=== PATIENT | female | born 1995 | race Caucasian/White ===

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

== ENCOUNTER 2017-04-13 21:24 | Emergency (ER) | payer OTHER ==
[~2017-04-13] VITALS: Ht 162.6 cm; Wt 81.8 kg
[~2017-04-13 21:24] MED LIST changes: +DESYREL 100MG100 MG PO; +EXCEDRIN1 TAB PO; +LEXAPRO 10MG10 MG PO; +MINIPRESS2 MG PO; +PEPCID 20MG TAB20 MG PO; +SAPHRIS10 MG SL; +VYVANSE70 MG PO; +WELLBUTRIN XL150 MG PO; +ZOFRAN ODT4 MG PO
[2017-04-13 21:27] VITALS: BP 139/79; TEMP 98.1
[2017-04-13] MEDS ORDERED: CEPHALEXIN500 M1 PO (23:21)
[2017-04-13 23:47] VITALS: PULSE 94
== END 2017-04-13 23:47 | disposition home or self-care (01) ==
LOC: COL.ER 21:24
DX: S71.111A Laceration without foreign body, right thigh, initial encounter (principal); F31.9 Bipolar disorder, unspecified; F41.9 Anxiety disorder, unspecified; Z23 Encounter for immunization; W26.0XXA Contact with knife, initial encounter; Y92.410 Unspecified street and highway as the place of occurrence of the external cause

== ENCOUNTER 2017-07-18 22:03 | Emergency (ER) | payer SELFPAY ==
[~2017-07-18] VITALS: Ht 160 cm; Wt 81.8 kg
[~2017-07-18 22:03] MED LIST changes: +CEPHALEXIN500 M1 PO
[2017-07-18 22:06] VITALS: BP 125/81; TEMP 97.3
[2017-07-18 23:37] VITALS: PULSE 90
== END 2017-07-18 23:38 | disposition home or self-care (01) ==
LOC: COL.ER 22:03
DX: S63.501A Unspecified sprain of right wrist, initial encounter (principal); F41.9 Anxiety disorder, unspecified; F43.10 Post-traumatic stress disorder, unspecified; F31.9 Bipolar disorder, unspecified; W01.0XXA Fall on same level from slipping, tripping and stumbling without subsequent striking against object, initial encounter

== ENCOUNTER 2018-01-22 17:54 | Emergency (ER) | payer OTHER ==
[~2018-01-22] VITALS: Ht 162.6 cm; Wt 92.7 kg
[2018-01-22 18:01] VITALS: TEMP 97
[2018-01-22 19:12] LABS: COLLECTION METHOD CLEAN CATCH
[2018-01-22 19:33] LABS: MUCOUS Present /lpf; PH 5 (5-8); URINE APPEARANCE Hazy; URINE BACTERIA Rare /hpf; URINE BILIRUBIN Negative (NEGATIVE); URINE BLOOD Negative (NEGATIVE); URINE CALCIUM OXALATE CRYSTAL Present /hpf; URINE COLOR Amber; URINE GLUCOSE Negative (NEGATIVE); URINE KETONE Negative (NEGATIVE); URINE LEUKOCYTE ESTERASE Negative (NEGATIVE); URINE NITRATE Negative (NEGATIVE); URINE PROTEIN(semi-quant) 1+ (NEGATIVE); URINE UROBILINOGEN Negative (NEGATIVE)
[2018-01-22 19:35] LABS: BASO % 0.3 % (0.0-2.0); EOS # 0.1 (0.0-0.7); EOS % 0.6 % (0-4.0); GRAN # 7.9 (1.4-6.5); GRAN % 71.6 % (42.2-75.2); HEMATOCRIT 41.7 % (37.0-47.0); HEMOGLOBIN 14.5 g/dl (12.5-16.0); LYMPH # 2.4 (1.2-3.4); LYMPH % 22.2 % (20.0-51.0); MEAN CELL VOLUME 86 fl (80.0-100.0); MEAN CORPUSCULAR HEMOGLOBIN 30 pg (27.0-31.0); MEAN CORPUSCULAR HGB CONC 35 g/dl (33.0-37.0); MEAN PLATELET VOLUME 9.1 fl (7.4-10.4); MONO # 0.6 (0.1-0.6); PLATELET COUNT 259 K/mm3 (130-400); RED BLOOD COUNT 4.87 M/mm3 (4.10-5.30); REDCELL DISTRIBUTION WIDTH-CV 13.7 % (11.5-14.5)
[2018-01-22 19:46] LABS: ALBUMIN 4.5 gm/dL (3.5-5.0); BILIRUBIN,TOTAL 0.4 mg/dL (0.0-1.0); CALCIUM 9.2 mg/dL (8.4-10.2); CREATININE, serum 1.41 mg/dL (0.52-1.25); POTASSIUM 3.5 mmol/L (3.4-5.0)
[2018-01-22 21:05] VITALS: BP 116/85; PULSE 82
== END 2018-01-22 21:05 | disposition home or self-care (01) ==
LOC: COL.ER 17:54
PROVIDERS: Nurse Practitioner
DX: M54.5 Low back pain (principal); F31.9 Bipolar disorder, unspecified; F41.9 Anxiety disorder, unspecified; F43.10 Post-traumatic stress disorder, unspecified; Z90.89 Acquired absence of other organs; Z96.22 Myringotomy tube(s) status
CPT/HCPCS: J7030

== ENCOUNTER → 2018-01-29 | Outpatient (CLI) | payer OTHER | LOC: COL.RAD 10:15 | DX: N28.1 Cyst of kidney, acquired (principal); R35.0 Frequency of micturition; N39.44 Nocturnal enuresis ==

== ENCOUNTER 2018-08-26 21:01 | Emergency (ER) | payer OTHER ==
[~2018-08-26] VITALS: Ht 160 cm; Wt 90.9 kg
[2018-08-26 21:03] VITALS: BP 123/71; TEMP 97.8
[2018-08-26 21:32] LABS: BASO % 0.1 % (0.0-2.0); EOS # 0.1 (0.0-0.7); EOS % 0.9 % (0-4.0); GRAN % 77.6 % (42.2-75.2); HEMATOCRIT 37.7 % (37.0-47.0); HEMOGLOBIN 12.7 g/dl (12.5-16.0); LYMPH # 1.3 (1.2-3.4); LYMPH % 14.5 % (20.0-51.0); MEAN CELL VOLUME 87 fl (80.0-100.0); MEAN CORPUSCULAR HEMOGLOBIN 29 pg (27.0-31.0); MEAN CORPUSCULAR HGB CONC 34 g/dl (33.0-37.0); MEAN PLATELET VOLUME 9.4 fl (7.4-10.4); MONO # 0.6 (0.1-0.6); MONO % 6.6 % (1.7-9.3); PLATELET COUNT 266 K/mm3 (130-400); RED BLOOD COUNT 4.35 M/mm3 (4.10-5.30); REDCELL DISTRIBUTION WIDTH-CV 12.3 % (11.5-14.5)
[2018-08-26 21:44] LABS: ALANINE AMINOTRANSFERASE 8 U/L (9-52); ALBUMIN 3.7 gm/dL (3.5-5.0); ALKALINE PHOSPHATASE 81 U/L (50-136); ANION GAP 9 mmol/L (7-16); AST,SGOT 27 U/L (15-37); BILIRUBIN,TOTAL 0.3 mg/dL (0.0-1.0); BLOOD UREA NITROGEN 13 mg/dL (7-17); CALCIUM 8.7 mg/dL (8.4-10.2); CARBON DIOXIDE 21 mmol/L (22-30); CHLORIDE 111 mmol/L (98-107); CREATININE, serum 0.91 (0.52-1.25); GLUCOSE 114 mg/dL (74-106); POTASSIUM 3.8 mmol/L (3.4-5.0); SODIUM 141 mmol/L (137-145); TOTAL PROTEIN 6.8 gm/dL (6.4-8.2)
[2018-08-26 21:47] LABS: ACETAMINOPHEN < 10 ug/mL (10-30); ALCOHOL(ethanol),MEDICAL < 10 mg/dL; SALICYLATE < 1.0 mg/dL
[2018-08-26 22:29] LABS: COLLECTION METHOD CLEAN CATCH
[2018-08-26] MEDS ORDERED: TOPAMAX50 MG PO (22:35)
[2018-08-26] MEDS ORDERED: REVIA 50MG TABL50 MG PO (22:35)
[2018-08-26] MEDS ORDERED: MAG-OX 400400 MG/TAB PO (22:36)
[2018-08-26 22:40] LABS: MUCOUS Present /lpf; PH 6 (5-8); SQUAMOUS EPITHELIAL 0-2 /hpf; URINE APPEARANCE Hazy; URINE BACTERIA None Seen /hpf; URINE BILIRUBIN Negative (NEGATIVE); URINE BLOOD 3+ (NEGATIVE); URINE CALCIUM OXALATE CRYSTAL Present /hpf; URINE COLOR Yellow; URINE GLUCOSE Negative (NEGATIVE); URINE KETONE Negative (NEGATIVE); URINE LEUKOCYTE ESTERASE Negative (NEGATIVE); URINE NITRATE Negative (NEGATIVE); URINE PROTEIN(semi-quant) Negative (NEGATIVE); URINE RBC >50 /hpf
[2018-08-26 22:45] LABS: TRICYCLIC ANTIDEPRESS URINE NEGATIVE
[2018-08-26 23:30] VITALS: PULSE 110
== END 2018-08-26 23:30 | disposition home or self-care (01) ==
LOC: COL.ER 21:01
PROVIDERS: Nurse Practitioner
DX: R51 Headache (principal); F31.9 Bipolar disorder, unspecified; F41.9 Anxiety disorder, unspecified; F43.10 Post-traumatic stress disorder, unspecified; F12.90 Cannabis use, unspecified, uncomplicated; Z96.22 Myringotomy tube(s) status; Z90.89 Acquired absence of other organs
CPT/HCPCS: J1885; J7030

== ENCOUNTER 2018-09-30 01:36 | Emergency (ER) | payer OTHER ==
[~2018-09-30] VITALS: Ht 157.5 cm; Wt 90.9 kg
[~2018-09-30 01:36] MED LIST changes: +MAG-OX 400400 MG/TAB PO; +REVIA 50MG TABL50 MG PO; +TOPAMAX50 MG PO
[2018-09-30 01:39] VITALS: BP 132/82; TEMP 98.8
[2018-09-30 02:05] LABS: BASO % 0.4 % (0.0-2.0); EOS % 0.5 % (0-4.0); GRAN # 4.9 (1.4-6.5); GRAN % 61.4 % (42.2-75.2); HEMATOCRIT 38.8 % (37.0-47.0); HEMOGLOBIN 13.3 g/dl (12.5-16.0); LYMPH # 2.3 (1.2-3.4); LYMPH % 29.5 % (20.0-51.0); MEAN CELL VOLUME 82 fl (80.0-100.0); MEAN CORPUSCULAR HEMOGLOBIN 28 pg (27.0-31.0); MEAN CORPUSCULAR HGB CONC 34 g/dl (33.0-37.0); MEAN PLATELET VOLUME 8.9 fl (7.4-10.4); MONO # 0.6 (0.1-0.6); MONO % 7.9 % (1.7-9.3); PLATELET COUNT 292 K/mm3 (130-400); RED BLOOD COUNT 4.72 M/mm3 (4.10-5.30); REDCELL DISTRIBUTION WIDTH-CV 12.2 % (11.5-14.5)
[2018-09-30 02:15] LABS: ALANINE AMINOTRANSFERASE 16 U/L (9-52); ALCOHOL(ethanol),MEDICAL 109 mg/dL; ALKALINE PHOSPHATASE 98 U/L (50-136); ANION GAP 13 mmol/L (7-16); AST,SGOT 21 U/L (15-37); BILIRUBIN,TOTAL 0.2 mg/dL (0.0-1.0); BLOOD UREA NITROGEN 7 mg/dL (7-17); CALCIUM 8.8 mg/dL (8.4-10.2); CARBON DIOXIDE 20 mmol/L (22-30); CHLORIDE 111 mmol/L (98-107); CREATININE, serum 0.74 (0.52-1.25); GLUCOSE 122 mg/dL (74-106); POTASSIUM 3.4 mmol/L (3.4-5.0); SODIUM 143 mmol/L (137-145); TOTAL PROTEIN 7.1 gm/dL (6.4-8.2)
[2018-09-30 02:17] LABS: ACETAMINOPHEN < 10 ug/mL (10-30); SALICYLATE < 1.0 mg/dL
[2018-09-30] MEDS ORDERED: ATARAX 25MG25 MG/TAB PO (02:32)
[2018-09-30] MEDS ORDERED: INDERAL 20MG20 MG PO (02:33)
[2018-09-30] MEDS ORDERED: LEXAPRO20 MG PO (02:33)
[2018-09-30 02:56] LABS: COLLECTION METHOD CLEAN CATCH
[2018-09-30 03:02] LABS: MUCOUS Present /lpf; PH 5 (5-8); SQUAMOUS EPITHELIAL 0-2 /hpf; URINE APPEARANCE Clear; URINE BACTERIA None Seen /hpf; URINE BILIRUBIN Negative (NEGATIVE); URINE BLOOD Negative (NEGATIVE); URINE COLOR Yellow; URINE GLUCOSE Negative (NEGATIVE); URINE KETONE Negative (NEGATIVE); URINE LEUKOCYTE ESTERASE Negative (NEGATIVE); URINE NITRATE Negative (NEGATIVE); URINE PROTEIN(semi-quant) Negative (NEGATIVE); URINE RBC 0-2 /hpf; URINE UROBILINOGEN Negative (NEGATIVE)
[2018-09-30 03:08] LABS: TRICYCLIC ANTIDEPRESS URINE NEGATIVE
[2018-09-30 05:25] VITALS: PULSE 112
== END 2018-09-30 05:25 | disposition home or self-care (01) ==
LOC: COL.ER 01:36
PROVIDERS: Emergency Medicine
DX: F10.120 Alcohol abuse with intoxication, uncomplicated (principal); R45.851 Suicidal ideations; F32.9 Major depressive disorder, single episode, unspecified; G43.909 Migraine, unspecified, not intractable, without status migrainosus

== ENCOUNTER 2018-10-06 22:51 | Emergency (ER) | payer OTHER ==
[~2018-10-06] VITALS: Ht 157.5 cm; Wt 90.9 kg
[2018-10-06 23:00] VITALS: TEMP 98.7
[2018-10-06 23:58] LABS: BASO % 0.2 % (0.0-2.0); EOS # 0.1 (0.0-0.7); EOS % 0.9 % (0-4.0); GRAN # 5.8 (1.4-6.5); GRAN % 71.7 % (42.2-75.2); HEMATOCRIT 37.7 % (37.0-47.0); HEMOGLOBIN 12.8 g/dl (12.5-16.0); LYMPH # 1.7 (1.2-3.4); LYMPH % 21.3 % (20.0-51.0); MEAN CELL VOLUME 84 fl (80.0-100.0); MEAN CORPUSCULAR HEMOGLOBIN 28 pg (27.0-31.0); MEAN CORPUSCULAR HGB CONC 34 g/dl (33.0-37.0); MEAN PLATELET VOLUME 8.9 fl (7.4-10.4); MONO # 0.5 (0.1-0.6); MONO % 5.7 % (1.7-9.3); PLATELET COUNT 268 K/mm3 (130-400); RED BLOOD COUNT 4.51 M/mm3 (4.10-5.30); REDCELL DISTRIBUTION WIDTH-CV 13.2 % (11.5-14.5)
[2018-10-07 00:13] LABS: ALANINE AMINOTRANSFERASE 29 U/L (9-52); ALBUMIN 3.6 gm/dL (3.5-5.0); ALKALINE PHOSPHATASE 66 U/L (50-136); ANION GAP 9 mmol/L (7-16); AST,SGOT 36 U/L (15-37); BILIRUBIN,TOTAL 0.3 mg/dL (0.0-1.0); BLOOD UREA NITROGEN 9 mg/dL (7-17); CALCIUM 8.7 mg/dL (8.4-10.2); CARBON DIOXIDE 23 mmol/L (22-30); CHLORIDE 108 mmol/L (98-107); CREATININE, serum 0.89 (0.52-1.25); GLUCOSE 119 mg/dL (74-106); POTASSIUM 3.6 mmol/L (3.4-5.0); SALICYLATE 3.9 mg/dL; SODIUM 140 mmol/L (137-145); TOTAL PROTEIN 6.6 gm/dL (6.4-8.2)
[2018-10-07 00:20] LABS: ACETAMINOPHEN < 10 ug/mL (10-30); ALCOHOL(ethanol),MEDICAL < 10 mg/dL
[2018-10-07 00:42] LABS: TSH w REFLEX 0.015 uIU/mL (0.465-4.680)
[2018-10-07 03:08] LABS: TRICYCLIC ANTIDEPRESS URINE NEGATIVE
[2018-10-07 12:30] VITALS: BP 96/53; PULSE 78
== END 2018-10-07 12:55 ==
LOC: COL.ER 22:51
PROVIDERS: Nurse Practitioner
DX: R45.851 Suicidal ideations (principal); J45.909 Unspecified asthma, uncomplicated; F12.90 Cannabis use, unspecified, uncomplicated; Z90.89 Acquired absence of other organs; F31.9 Bipolar disorder, unspecified; F41.9 Anxiety disorder, unspecified; F43.10 Post-traumatic stress disorder, unspecified; E03.9 Hypothyroidism, unspecified

== ENCOUNTER → 2018-10-06 | Outpatient (CLI) | payer OTHER ==
[~2018-10-06] MED LIST changes: +ATARAX 25MG25 MG/TAB PO; +INDERAL 20MG20 MG PO; +LEXAPRO20 MG PO
== END ==
LOC: LDRO 23:58
DX: Z04.41 Encounter for examination and observation following alleged adult rape (principal)
CPT/HCPCS: J0696

== ENCOUNTER 2018-11-02 20:03 | Emergency (ER) | payer OTHER ==
[~2018-11-02] VITALS: Ht 157.5 cm; Wt 104.5 kg
[2018-11-02 20:17] VITALS: BP 120/73; PULSE 72; TEMP 98.9
[2018-11-02] MEDS ORDERED: EFFE25TA PO (20:19)
[2018-11-02] MEDS ORDERED: LITHIUM 30300 MG/CAP PO (20:19)
[2018-11-02] MEDS ORDERED: DESYREL 50MG50 MG PO (20:21)
[2018-11-02 21:39] LABS: COLLECTION METHOD CLEAN CATCH
[2018-11-02 21:40] LABS: BASO % 0.4 % (0.0-2.0); EOS # 0.2 (0.0-0.7); EOS % 2.4 % (0-4.0); GRAN # 4.7 (1.4-6.5); GRAN % 60.6 % (42.2-75.2); HEMATOCRIT 39.7 % (37.0-47.0); HEMOGLOBIN 13.3 g/dl (12.5-16.0); LYMPH # 2.4 (1.2-3.4); LYMPH % 30.3 % (20.0-51.0); MEAN CELL VOLUME 86 fl (80.0-100.0); MEAN CORPUSCULAR HEMOGLOBIN 29 pg (27.0-31.0); MEAN CORPUSCULAR HGB CONC 34 g/dl (33.0-37.0); MEAN PLATELET VOLUME 9.3 fl (7.4-10.4); MONO # 0.5 (0.1-0.6); MONO % 5.9 % (1.7-9.3); PLATELET COUNT 317 K/mm3 (130-400); RED BLOOD COUNT 4.64 M/mm3 (4.10-5.30); REDCELL DISTRIBUTION WIDTH-CV 14.6 % (11.5-14.5)
[2018-11-02 21:49] LABS: ALANINE AMINOTRANSFERASE 18 U/L (9-52); ALBUMIN 4.3 gm/dL (3.5-5.0); ALKALINE PHOSPHATASE 100 U/L (50-136); ANION GAP 9 mmol/L (7-16); AST,SGOT 30 U/L (15-37); BILIRUBIN,TOTAL 0.3 mg/dL (0.0-1.0); BLOOD UREA NITROGEN 10 mg/dL (7-17); CALCIUM 9.2 mg/dL (8.4-10.2); CARBON DIOXIDE 27 mmol/L (22-30); CHLORIDE 104 mmol/L (98-107); CREATININE, serum 0.94 (0.52-1.25); GLUCOSE 96 mg/dL (74-106); POTASSIUM 3.9 mmol/L (3.4-5.0); SODIUM 139 mmol/L (137-145); TOTAL PROTEIN 7.3 gm/dL (6.4-8.2)
[2018-11-02 21:51] LABS: PH 6 (5-8); SQUAMOUS EPITHELIAL 0-2 /hpf; URINE APPEARANCE Cloudy; URINE BACTERIA Moderate /hpf; URINE BILIRUBIN Negative (NEGATIVE); URINE BLOOD Negative (NEGATIVE); URINE COLOR Amber; URINE GLUCOSE Negative (NEGATIVE); URINE KETONE Negative (NEGATIVE); URINE LEUKOCYTE ESTERASE Negative (NEGATIVE); URINE NITRATE Negative (NEGATIVE); URINE PROTEIN(semi-quant) Negative (NEGATIVE); URINE RBC 0-2 /hpf; URINE UROBILINOGEN Negative (NEGATIVE)
[2018-11-02 21:52] LABS: ACETAMINOPHEN < 10 ug/mL (10-30); ALCOHOL(ethanol),MEDICAL < 10 mg/dL; SALICYLATE < 1.0 mg/dL
[2018-11-02 22:08] LABS: TRICYCLIC ANTIDEPRESS URINE NEGATIVE
== END 2018-11-03 01:42 | disposition home or self-care (01) ==
LOC: COL.ER 20:03
PROVIDERS: Physician Assistant
DX: R45.851 Suicidal ideations (principal); F32.9 Major depressive disorder, single episode, unspecified; F43.10 Post-traumatic stress disorder, unspecified

== ENCOUNTER 2019-04-28 04:15 | Emergency (ER) | payer OTHER ==
[~2019-04-28] VITALS: Ht 157.5 cm; Wt 102.3 kg
[~2019-04-28 04:15] MED LIST changes: +EFFE25TA PO; +LITHIUM 30300 MG/CAP PO
[2019-04-28 05:11] LABS: COLLECTION METHOD CLEAN CATCH
[2019-04-28 05:16] LABS: MUCOUS Present /lpf; PH 6 (5-8); SQUAMOUS EPITHELIAL 0-2 /hpf; URINE APPEARANCE Clear; URINE BACTERIA None Seen /hpf; URINE BILIRUBIN Negative (NEGATIVE); URINE BLOOD Negative (NEGATIVE); URINE COLOR Yellow; URINE GLUCOSE Negative (NEGATIVE); URINE KETONE Negative (NEGATIVE); URINE LEUKOCYTE ESTERASE Negative (NEGATIVE); URINE NITRATE Negative (NEGATIVE); URINE PROTEIN(semi-quant) Negative (NEGATIVE); URINE RBC 0-2 /hpf; URINE UROBILINOGEN Negative (NEGATIVE)
[2019-04-28 05:25] LABS: TRICYCLIC ANTIDEPRESS URINE NEGATIVE
[2019-04-28] MEDS ORDERED: SYNTHROID 0.0.025 MG (06:24)
[2019-04-28] MEDS ORDERED: GEODON 20 MG20 MG (06:24)
[2019-04-28] MEDS ORDERED: MULTI VITAMINS1 TAB PO (06:24)
[2019-04-28 06:50] LABS: BASO % 0.2 % (0.0-2.0); EOS % 0.1 % (0-4.0); GRAN # 5.7 (1.4-6.5); HEMATOCRIT 41.8 % (37.0-47.0); HEMOGLOBIN 14.2 g/dl (12.5-16.0); LYMPH # 2.3 (1.2-3.4); LYMPH % 27.3 % (20.0-51.0); MEAN CELL VOLUME 82 fl (80.0-100.0); MEAN CORPUSCULAR HEMOGLOBIN 28 pg (27.0-31.0); MEAN CORPUSCULAR HGB CONC 34 g/dl (33.0-37.0); MEAN PLATELET VOLUME 8.9 fl (7.4-10.4); MONO # 0.3 (0.1-0.6); MONO % 3.9 % (1.7-9.3); PLATELET COUNT 297 K/mm3 (130-400); RED BLOOD COUNT 5.08 M/mm3 (4.10-5.30); REDCELL DISTRIBUTION WIDTH-CV 13.8 % (11.5-14.5)
[2019-04-28 06:59] LABS: ALANINE AMINOTRANSFERASE 36 U/L (9-52); ALBUMIN 4.6 gm/dL (3.5-5.0); ALCOHOL(ethanol),MEDICAL 97 mg/dL; ALKALINE PHOSPHATASE 92 U/L (50-136); ANION GAP 17 mmol/L (7-16); AST,SGOT 33 U/L (15-37); BILIRUBIN,TOTAL 0.3 mg/dL (0.0-1.0); BLOOD UREA NITROGEN 8 mg/dL (7-17); CALCIUM 8.9 mg/dL (8.4-10.2); CARBON DIOXIDE 17 mmol/L (22-30); CHLORIDE 111 mmol/L (98-107); CREATININE, serum 0.93 (0.52-1.25); GLUCOSE 107 mg/dL (74-106); POTASSIUM 3.3 mmol/L (3.4-5.0); SODIUM 145 mmol/L (137-145)
[2019-04-28 07:02] LABS: ACETAMINOPHEN < 10 ug/mL (10-30); SALICYLATE < 1.0 mg/dL
[2019-04-28 10:23] VITALS: BP 137/100; PULSE 121; TEMP 98
== END 2019-04-28 11:05 | disposition home or self-care (01) ==
LOC: COL.ER 04:15
PROVIDERS: Emergency Medicine
DX: R45.851 Suicidal ideations (principal); F10.129 Alcohol abuse with intoxication, unspecified; F32.9 Major depressive disorder, single episode, unspecified; F41.9 Anxiety disorder, unspecified; Y90.4 Blood alcohol level of 80-99 mg/100 ml

== ENCOUNTER 2019-05-04 01:41 | Emergency (ER) | payer OTHER ==
[~2019-05-04] VITALS: Ht 157.5 cm; Wt 90.9 kg
[~2019-05-04 01:41] MED LIST changes: +GEODON 20 MG20 MG; +MULTI VITAMINS1 TAB PO; +SYNTHROID 0.0.025 MG
[2019-05-04 02:21] LABS: BASO % 0.3 % (0.0-2.0); EOS % 0.2 % (0-4.0); GRAN # 3.4 (1.4-6.5); GRAN % 51.6 % (42.2-75.2); HEMATOCRIT 40.7 % (37.0-47.0); HEMOGLOBIN 13.8 g/dl (12.5-16.0); LYMPH # 2.7 (1.2-3.4); LYMPH % 41.1 % (20.0-51.0); MEAN CELL VOLUME 81 fl (80.0-100.0); MEAN CORPUSCULAR HEMOGLOBIN 28 pg (27.0-31.0); MEAN CORPUSCULAR HGB CONC 34 g/dl (33.0-37.0); MEAN PLATELET VOLUME 9.2 fl (7.4-10.4); MONO # 0.4 (0.1-0.6); MONO % 6.5 % (1.7-9.3); PLATELET COUNT 249 K/mm3 (130-400); RED BLOOD COUNT 5.01 M/mm3 (4.10-5.30); REDCELL DISTRIBUTION WIDTH-CV 14.2 % (11.5-14.5)
[2019-05-04 02:40] LABS: ALANINE AMINOTRANSFERASE 30 U/L (9-52); ALBUMIN 4.5 gm/dL (3.5-5.0); ALCOHOL(ethanol),MEDICAL 115 mg/dL; ALKALINE PHOSPHATASE 81 U/L (50-136); ANION GAP 13 mmol/L (7-16); AST,SGOT 27 U/L (15-37); BILIRUBIN,TOTAL 0.3 mg/dL (0.0-1.0); BLOOD UREA NITROGEN 4 mg/dL (7-17); CALCIUM 8.5 mg/dL (8.4-10.2); CARBON DIOXIDE 21 mmol/L (22-30); CHLORIDE 112 mmol/L (98-107); GLUCOSE 112 mg/dL (74-106); POTASSIUM 3.3 mmol/L (3.4-5.0); SODIUM 146 mmol/L (137-145); TOTAL PROTEIN 7.5 gm/dL (6.4-8.2)
[2019-05-04 02:41] LABS: ACETAMINOPHEN < 10 ug/mL (10-30); SALICYLATE < 1.0 mg/dL
[2019-05-04 05:44] LABS: COLLECTION METHOD CLEAN CATCH
[2019-05-04 05:54] LABS: MUCOUS Present /lpf; PH 6 (5-8); URINE APPEARANCE Hazy; URINE BACTERIA None Seen /hpf; URINE BILIRUBIN Negative (NEGATIVE); URINE BLOOD 3+ (NEGATIVE); URINE COLOR Yellow; URINE GLUCOSE Negative (NEGATIVE); URINE KETONE Negative (NEGATIVE); URINE LEUKOCYTE ESTERASE Trace (NEGATIVE); URINE NITRATE Negative (NEGATIVE); URINE PROTEIN(semi-quant) Negative (NEGATIVE); URINE RBC 20-50 /hpf; URINE UROBILINOGEN Negative (NEGATIVE)
[2019-05-04 05:59] LABS: TRICYCLIC ANTIDEPRESS URINE NEGATIVE
[2019-05-04 08:00] VITALS: TEMP 97.9
[2019-05-04] MEDS ORDERED: SYNTHROID0.05 MG/TA PO (14:56)
[2019-05-04] MEDS ORDERED: AMBIEN 10MG10 MG PO (15:41)
[2019-05-04] MEDS ORDERED: GEODON60 MG PO (15:42)
[2019-05-04 15:55] VITALS: BP 126/88; PULSE 107
== END 2019-05-04 15:55 ==
LOC: COL.ER 01:41
PROVIDERS: Emergency Medicine
DX: F10.129 Alcohol abuse with intoxication, unspecified (principal); F32.9 Major depressive disorder, single episode, unspecified; F41.9 Anxiety disorder, unspecified; Y90.5 Blood alcohol level of 100-119 mg/100 ml
CPT/HCPCS: J7030

== ENCOUNTER 2021-01-01 08:20 | Emergency (ER) | payer OTHER ==
[~2021-01-01] VITALS: Ht 162.6 cm; Wt 86.4 kg
[~2021-01-01 08:20] MED LIST changes: +AMBIEN 10MG10 MG PO; +GEODON60 MG PO; +SYNTHROID0.05 MG/TA PO
[2021-01-01 09:11] LABS: COLLECTION METHOD CLEAN CATCH
[2021-01-01 09:14] LABS: BASO % 0.4 % (0.0-2.0); EOS # 0.1 K/mm3 (0.0-0.7); GRAN % 53.9 % (42.2-75.2); HEMATOCRIT 44.9 % (37.0-47.0); HEMOGLOBIN 15.1 g/dl (12.5-16.0); LYMPH # 1.9 K/mm3 (1.2-3.4); LYMPH % 34.4 % (20.0-51.0); MEAN CELL VOLUME 86 fl (80.0-100.0); MEAN CORPUSCULAR HEMOGLOBIN 29 pg (27.0-31.0); MEAN CORPUSCULAR HGB CONC 34 g/dl (33.0-37.0); MONO # 0.5 K/mm3 (0.1-0.6); MONO % 8.9 % (1.7-9.3); PLATELET COUNT 221 K/mm3 (130-400); RED BLOOD COUNT 5.22 M/mm3 (4.10-5.30); REDCELL DISTRIBUTION WIDTH-CV 14.3 % (11.5-14.5)
[2021-01-01 09:21] LABS: MUCOUS Present /lpf; PH 5 (5-8); URINE APPEARANCE Cloudy; URINE BACTERIA None Seen /hpf; URINE BILIRUBIN Negative (NEGATIVE); URINE BLOOD 3+ (NEGATIVE); URINE CALCIUM OXALATE CRYSTAL Present /hpf; URINE COLOR Yellow; URINE GLUCOSE Negative (NEGATIVE); URINE KETONE Negative (NEGATIVE); URINE LEUKOCYTE ESTERASE Negative (NEGATIVE); URINE NITRATE Negative (NEGATIVE); URINE PROTEIN(semi-quant) 2+ (NEGATIVE); URINE RBC >50 /hpf; URINE UROBILINOGEN Negative (NEGATIVE)
[2021-01-01 09:33] LABS: ALBUMIN 4.3 gm/dL (3.5-5.0); BILIRUBIN,TOTAL 0.3 mg/dL (0.2-1.2); CALCIUM 9.3 mg/dL (8.4-10.2); CREATININE, serum 1.18 mg/dL (0.57-1.11); POTASSIUM 3.6 mmol/L (3.5-4.5); TOTAL PROTEIN 7.6 gm/dL (6.2-8.1)
[2021-01-01] MEDS ORDERED: CEPHALEXIN500 M1 PO (10:43)
[2021-01-01] MEDS ORDERED: ZOFRAN ODT4 MG PO (10:43)
[2021-01-01] MEDS ORDERED: PERCOCET 325 MG1 TA2 PO (10:43)
[2021-01-01 11:10] VITALS: BP 105/73; PULSE 83; TEMP 98.7
== END 2021-01-01 11:10 | disposition home or self-care (01) ==
LOC: COL.ER 08:20
PROVIDERS: Personal Emergency Response Attendant
DX: N20.0 Calculus of kidney (principal); N12 Tubulo-interstitial nephritis, not specified as acute or chronic; F41.9 Anxiety disorder, unspecified; Z90.49 Acquired absence of other specified parts of digestive tract; Z79.899 Other long term (current) drug therapy
CPT/HCPCS: J0696; J2270; J2405; J7030

== ENCOUNTER 2021-01-20 13:44 | Day surgery (SDC) | payer OTHER ==
[2021-01-20] VITALS (12 sets, daily range): BP systolic 108–126; BP diastolic 64–80; PULSE 61–80; TEMP 98.2–98.4
[~2021-01-20] VITALS: Ht 162.6 cm; Wt 88.3 kg
[~2021-01-20 13:44] MED LIST changes: +PERCOCET 325 MG1 TA2 PO
[2021-01-20] MEDS ORDERED: TIROSINT75 MC1 PO (15:29)
[2021-01-20] MEDS ORDERED: ZOLOFT 100MG100 MG PO (15:31)
[2021-01-20] MEDS ORDERED: GEODON 40MG40 MG PO (15:31)
[2021-01-20] MEDS ORDERED: LUNESTA3 MG PO (15:32)
--- NOTE | 2021-01-20 16:00 | NUR ---
Patient continues to await surgery. Parents in room.
--- NOTE | 2021-01-20 20:30 | NUR ---
PT IS A&0 X3, PLEASANT, REQUESTS PAIN MEDICATION FOR PAIN. DR. MILLER CALLED ET ORDER RECEIVED FOR PERCOCET PO. PERCOCET IS ADMINISTERED. PT'S FAMILY MEMBER IS @ BEDSIDE. PT EXPRESSES WANTING TO BE DISCHARGED TO GO HOME. PT HAS AMBULATED TO BR TO VOID ET HAS TOLERATED PO INTAKE WELL. PERIPHERAL IV IS DISCONTINUED. PT GIVEN DISCHARGE INSTRUCTIONS, VERBALIZES UNDERSTNADING. PT LEAVES UNIT VIA WHEELCHAIR ACCOMPANIED BY FAMILY.
== END 2021-01-20 20:25 | disposition home or self-care (01) ==
LOC: SDCO 13:44 → SURG 17:45 → SDCO 20:15
DX: R31.9 Hematuria, unspecified (principal); N20.0 Calculus of kidney; J45.909 Unspecified asthma, uncomplicated; F31.9 Bipolar disorder, unspecified; F41.9 Anxiety disorder, unspecified; F43.10 Post-traumatic stress disorder, unspecified; F41.0 Panic disorder [episodic paroxysmal anxiety]; Z90.89 Acquired absence of other organs; Z79.899 Other long term (current) drug therapy
CPT/HCPCS: OP; C1769; C2617; J0690; J1100; J1885; J2405; J2704; J3010; J7120; Q9967

== ENCOUNTER 2021-05-16 09:40 | Emergency (ER) | payer OTHER, MEDICAID ==
[~2021-05-16] VITALS: Ht 160 cm; Wt 92.3 kg
[~2021-05-16 09:40] MED LIST changes: +GEODON 40MG40 MG PO; +LUNESTA3 MG PO; +TIROSINT75 MC1 PO; +ZOLOFT 100MG100 MG PO
[2021-05-16 09:48] VITALS: TEMP 97.8
[2021-05-16 10:38] LABS: BASO % 0.1 % (0.0-2.0); EOS # 0.1 K/mm3 (0.0-0.7); EOS % 0.7 % (0.0-4.0); GRAN # 5.1 K/mm3 (1.4-6.5); HEMATOCRIT 35.2 % (37.0-47.0); HEMOGLOBIN 12.4 g/dl (12.5-16.0); LYMPH # 1.5 K/mm3 (1.2-3.4); LYMPH % 21.3 % (20.0-51.0); MEAN CELL VOLUME 84 fl (80.0-100.0); MEAN CORPUSCULAR HEMOGLOBIN 30 pg (27-31); MEAN CORPUSCULAR HGB CONC 35 g/dl (33.0-37.0); MEAN PLATELET VOLUME 9.3 fl (7.4-10.4); MONO # 0.3 K/mm3 (0.1-0.6); MONO % 4.3 % (1.7-9.3); PLATELET COUNT 216 K/mm3 (130-400); RED BLOOD COUNT 4.19 M/mm3 (4.10-5.30); REDCELL DISTRIBUTION WIDTH-CV 14.4 % (11.5-14.5)
[2021-05-16 10:49] LABS: ALBUMIN 3.2 gm/dL (3.5-5.0); BILIRUBIN,TOTAL 0.3 mg/dL (0.2-1.2); CALCIUM 8.5 mg/dL (8.4-10.2); CREATININE, serum 0.73 mg/dL (0.57-1.11); POTASSIUM 3.6 mmol/L (3.5-4.5); TOTAL PROTEIN 6.6 gm/dL (6.2-8.1)
[2021-05-16 11:13] LABS: COLLECTION METHOD CLEAN CATCH
[2021-05-16 11:18] LABS: PH 7 (5-8); SQUAMOUS EPITHELIAL 0-2 /hpf (0-10); URINE APPEARANCE Clear (CLEAR/HAZY); URINE BACTERIA Rare /hpf (NONE SEEN); URINE BILIRUBIN Negative (NEGATIVE); URINE BLOOD Negative (NEGATIVE); URINE COLOR Yellow (YELLOW); URINE GLUCOSE Negative (NEGATIVE); URINE KETONE Negative (NEGATIVE); URINE LEUKOCYTE ESTERASE Negative (NEGATIVE); URINE NITRATE Negative (NEGATIVE); URINE PROTEIN(semi-quant) Negative (NEGATIVE); URINE RBC 0-2 /hpf (0-2); URINE UROBILINOGEN Negative (NEGATIVE)
[2021-05-16] MEDS ORDERED: ZOFRAN ODT4 MG PO (11:36)
[2021-05-16 11:46] VITALS: BP 113/80; PULSE 84
== END 2021-05-16 11:46 | disposition home or self-care (01) ==
LOC: COL.ER 09:40
PROVIDERS: Emergency Medicine
DX: O26.892 Other specified pregnancy related conditions, second trimester (principal); R10.11 Right upper quadrant pain; O99.012 Anemia complicating pregnancy, second trimester; D64.9 Anemia, unspecified; O21.9 Vomiting of pregnancy, unspecified; Z3A.18 18 weeks gestation of pregnancy
CPT/HCPCS: J2270; J2405; J7030

== ENCOUNTER → 2021-05-19 | Outpatient (CLI) | payer OTHER | LOC: COL.RAD 11:12 | DX: O26.892 Other specified pregnancy related conditions, second trimester (principal); R10.11 Right upper quadrant pain; Z3A.17 17 weeks gestation of pregnancy ==

== ENCOUNTER → 2021-09-04 | Outpatient (CLI) | payer OTHER ==
[~2021-09-04] VITALS: Ht 160 cm; Wt 101.4 kg
[~2021-09-04] MED LIST changes: +BUSPAR DIVIDOSE15 MG PO; +PRENATAL TABLET PO
[2021-09-04 13:30] VITALS: BP 112/67; PULSE 90; TEMP 98.1
--- NOTE | 2021-09-04 14:03 | NUR ---
1330 PATIENT HERE FOR COMPLAINTS THAT HER 120 POUND DOG KICKED HER, AND HAVING SOME DISCOMFORT IN HER BELLY BUTTON. EFM ON FHT 125 BABY VERY ACTIVE. NO CONTRACTIONS NOTED ON MONITOR OR PALPATED. PATIENT DENIES CONTRACTIONS, LEAKING FLUID, OR ANY BLEEDING. ASSESSMENT COMPLETED. DR GUO CALLED AND UPDATED. ORDERS TO MONITOR PATIENT FOR 2 HOURS.
[2021-09-04 14:30] VITALS: PULSE 78
[2021-09-04 15:00] VITALS: BP 111/57; PULSE 93
[2021-09-04 15:23] VITALS: BP 106/63; PULSE 90
--- NOTE | 2021-09-04 15:24 | NUR ---
1520 NO CHANGES NOTED. FHT 120 BABY ACTIVE. MOM DENIES PAIN AT THIS TIME
--- NOTE | 2021-09-04 15:31 | NUR ---
1530 ALL DISCHARGE INSTRUCTIONS GIVEN TO PATIENT AT THIS TIME. DIMISSED TO HOME AT THIS TIME
== END ==
LOC: LDRO 13:30
DX: O9A.213 Injury, poisoning and certain other consequences of external causes complicating pregnancy, third trimester (principal); W54.1XXA Struck by dog, initial encounter; Z3A.33 33 weeks gestation of pregnancy

== ENCOUNTER 2021-10-12 04:25 | Inpatient (IN) | payer MEDICAID ==
[2021-10-12] VITALS (45 sets, daily range): BP systolic 92–148; BP diastolic 52–96; PULSE 53–108; TEMP 98–98.9
[~2021-10-12] VITALS: Ht 160 cm; Wt 113.6 kg
--- NOTE | 2021-10-12 04:35 | NUR ---
0435- PT PRESENTS TO LDR COMPLAINING OF LEAKING AMNIOTIC FLUID. AMBULATORY TO ROOM LR5, CHANGED INTO JAQUELIN. 0441- EFM X2 APPLIED. PLAN OF CARE FOR LABOR CHECK AND QUESTIONS ANSWERED. PT REPORTS GUSH OF CLEAR FLUID AT 0405. DENIES CONTRACTIONS OR VAGINAL BLEEDING. STATES SHE IS ALSO FEELING BABY MOVE. 0445- AMNIOTRACE POSITIVE FOR RUPTURE OF MEMBRANES. SVE BY THIS NURSE 1-/-3 WITH POSITIVE POOLING OF FLUID. PLAN OF CARE DISCUSSED WITH PT AND QUESTIONS ANSWERED. 0454- DR CANTOR CALLED CHARTED. ORDERS RECEIVED FOR ADMISSION. 0510- IV START TO LEFT WRIST CHARTED. BLOOD DRAWN FOR LAB. 0520- LR INFUSING ORDERED. NURSING ADMISSION HISTORY AND ASSESSMENTS COMPLETE. PLAN OF CARE DISCUSSED. 0550- PITOCIN INFUSION STARTED AT 2MUNITS/MIN ORDERED. PLAN OF CARE DISCUSSED WITH PT AND QUESTIONS ANSWERED. 0600- CONSENTS SIGNED. [id number]- BABY DIFFICULT TO MONITOR DUE TO ACTIVITY AND MATERNAL POSITION. NURSE AT BEDSIDE ADJUSTING MONITOR. PT MINISTERIO DOWN AND MONITORS ADJUSTED.
[2021-10-12 05:40] LABS: BASO % 0.2 % (0.0-2.0); EOS # 0.1 K/mm3 (0.0-0.7); EOS % 1.1 % (0.0-4.0); GRAN # 5.5 K/mm3 (1.4-6.5); GRAN % 61.9 % (42.2-75.2); HEMOGLOBIN 11.1 g/dl (12.5-16.0); LYMPH # 2.7 K/mm3 (1.2-3.4); LYMPH % 30.5 % (20.0-51.0); MEAN CELL VOLUME 86 fl (80.0-100.0); MEAN CORPUSCULAR HEMOGLOBIN 28 pg (27-31); MEAN CORPUSCULAR HGB CONC 33 g/dl (33.0-37.0); MEAN PLATELET VOLUME 10.2 fl (7.4-10.4); MONO # 0.5 K/mm3 (0.1-0.6); MONO % 5.3 % (1.7-9.3); PLATELET COUNT 289 K/mm3 (130-400); RED BLOOD COUNT 3.97 M/mm3 (4.10-5.30); REDCELL DISTRIBUTION WIDTH-CV 14.4 % (11.5-14.5)
--- NOTE | 2021-10-12 10:39 | NUR ---
1044 MD AT BEDSIDE FOR SVE. 1046 FSE PLACED TO HELP WITH TRACING. MOMENT OF TRACING AND THEN STOPPED. 9937 EXTERNAL MONITOR PLACED BACK ON.
--- NOTE | 2021-10-12 12:52 | NUR ---
1044 ANESTHESIA AT THE BEDSIDE FOR EPIDURAL. PATIENT SAT UP ON SIDE OF BED AND PREPPED. 1046 PITOCIN PAUSED AND BABY TAKEN OFF MONITOR FOR A MOMENT DUE TO DIFFICULTY TRACING WHILE SITTING UP. 1048 TIME OUT AND START OF PROCEDURE. 1050 SINGLE SHOT GIVEN. VITALS Q 5 MIN STARTED. 1057 END OF PROCEDURE, PATIENT TOLERATED WELL. AND LAID BACK SUPINE. BABY PLACED BACK ON THE MONITOR AND PITOCIN RESTARTED.
--- NOTE | 2021-10-12 12:59 | NUR ---
MOMENT OF MONITORING PAUSED DUE TO PATIENT SITTING UP. PITOCIN PAUSED AND RESARTED ONCE LAID BACK AND ABLE TO BE MONITORED.
--- NOTE | 2021-10-12 13:16 | NUR ---
1134 SVE PREFORMED PATIENT /-2 1138 FSE PLACED AND EXTERNAL MONITOR TAKING OFF. 1144 PABLO PLACED
--- NOTE | 2021-10-12 15:01 | NUR ---
PATIENT SIDE LYING, DIFFICULT TO TRACE CONTRACTIONS.
--- NOTE | 2021-10-12 15:25 | NUR ---
1513 SVE OF /-2 1524 SPOKE WITH TRU LINDERAY TO GO TO 30 OF PITOCIN.
--- NOTE | 2021-10-12 16:52 | NUR ---
PATIENT SIDE LYING, DIFFICULT TO TRACE CONTRACTIONS.
--- NOTE | 2021-10-12 18:18 | NUR ---
1657 MD AT BEDSIDE FOR SVE 1658 4-/-1 1700 IUPC PLACED BY MD. PATIENT CLEANED UP AND PLACED IN HIGH FOWLERS. MD AND RN REVIEWED STRIP, NOTIFIED OF MINIMAL VARIABLITY BUT ACCELS PRESENT. NO NEW ORDERS IN AT THIS.
--- NOTE | 2021-10-12 21:54 | NUR ---
@1835 DR. MEEKS CALLED A DUE TO FAILURE TO PROGRESS AFTER SVE REMAINS THE SAME. RN CLIPPED PATIENT ABD, ALFIE AREA AND CLEANSED ABD AREA FOR . PITOCIN WAS TURNED OFF AND REMOVED FROM IV LINE @1837 PER VERBAL ORDER. PATIENT UNDERSTOOD THE PROCESS AND ALL QUESTIONS WERE ANSWERED.
[2021-10-13] VITALS (7 sets, daily range): BP systolic 103–148; BP diastolic 47–95; PULSE 71–95; TEMP 98–98.4
--- NOTE | 2021-10-13 02:18 | NUR ---
@2300 RN ASSISTED PT. TO THE BATHROOM AND REMOVED PABLO CATHETER. RN PERFORMED ALFIE-CARE AND PLACED PAD WITH MESH PANTIES. PATIENT TOLERATED AMBULATIONG WELL. RN EDICATED PT ON THE IMPORTANCE OF CALLING BEFORE GETTING UP TO THE BATHROOM AND PT STATES AND UNDERSTANDING. BED LOW WITH WHEELS LOCKED, CALL LIGHT WITHIN REACH. SPOUSE DJ AT THE BEDSIDE HOLDING BABY.
--- NOTE | 2021-10-13 09:00 | NUR ---
THIS RN TOOK OVER CARE FROM JESS OLIVO. IN ROOM. UPDATED PT ON PLAN OF CARE.
--- NOTE | 2021-10-13 09:46 | NUR ---
Initial visit; Parents and Grandma thanked Printer Apprentice for offering congratulations and God's blessings for the of their baby boy. Printer Apprentice thanked family for choosing our hospital.
--- NOTE | 2021-10-13 10:15 | NUR ---
HELPED PT UP TO BATHROOM. BROUGHT PT DELIVERY BAG WITH NEW PADS AND UNDERWEAR. TOLD PT TO CALL WHEN DONE WITH RESTROOM SO I COULD DUMP HER HAT. PT AGREED.
--- NOTE | 2021-10-13 11:00 | NUR ---
THIS RN IN ROOM ATTEMPTING TO HELP PT BREASTFEED. PROVIDED NIPPLE SHIELD. HELPED BABY LATCH. 1105 PT CALLED OUT REQUESTING A BOTTLE.
[2021-10-14] MEDS ORDERED: MOTRIN 800800 MG/TAB PO (08:29)
[2021-10-14] MEDS ORDERED: PERCOCET 325 MG1 TA2 PO (08:30)
[2021-10-14 09:45] VITALS: BP 130/69; PULSE 91; TEMP 98.1
--- NOTE | 2021-10-14 09:50 | NUR ---
Rests in bed, alert. Request pain medication. Percocet 5/325 mg two given, ibuprofen 800 mg given per request and as ordered.
== END 2021-10-14 15:50 | disposition home or self-care (01) | DRG 788 ==
LOC: LDRO 04:25 → LDR 04:59 → OB 04:59
PROVIDERS: ADMIT Obstetrics & Gynecology
PROC: 10D00Z1 Extraction of Products of Conception, Low, Open Approach (ICD-10-PCS; principal; 2021-10-12)
DX: O99.344 Other mental disorders complicating childbirth (principal); F41.9 Anxiety disorder, unspecified; Z3A.39 39 weeks gestation of pregnancy; Z37.0 Single live birth; O99.284 Endocrine, nutritional and metabolic diseases complicating childbirth; E03.9 Hypothyroidism, unspecified; F31.9 Bipolar disorder, unspecified; O99.214 Obesity complicating childbirth; O99.02 Anemia complicating childbirth; D64.9 Anemia, unspecified; Z79.890 Hormone replacement therapy; Z90.89 Acquired absence of other organs; Z90.49 Acquired absence of other specified parts of digestive tract; Z87.448 Personal history of other diseases of urinary system
CPT/HCPCS: J0690; J2250; J2370; J2400; J2405; J2590; J2795; J3010; J7120

== ENCOUNTER → 2021-10-15 | Outpatient (CLI) | payer MEDICAID ==
[~2021-10-15] MED LIST changes: +MOTRIN 800800 MG/TAB PO
--- NOTE | 2021-10-15 14:14 | NUR ---
Pt, Phoebe Martinez, presents for outpatient consult with four day old baby boy, Shawn Reynolds, and her RUDDY Reynolds. Shawn was not able to latch in the hospital and pt is returning today to get assistance from this LC. Shawn was born by c/section on [birth year] and weighed 9#. Because he was not latching the family has been bottle feeding him formula. Currently he takes 35-40ml every 2-3 hours. Today Shawn weighs 8#7.2 oz (3834 gms). Pt pumped 1-2 times during her hospital stay, despite education to pump 8+ times daily. At home she has pumped once. She is discouraged about low milk supply and not having a higher quality BP. LC attempts to get Shawn to latch, eventually with the nipple shield and some SNS he drinks but quality of latch is poor. He takes 20ml formula per post feed weight. He is then fed from a bottle and has a total intake of 50ml. Pt is tearful that she is not able to breastfeed at this time, states she will work to improve pumping effort. LC supportive of pt's situation, FOB very supportive and attentive to pt's emotions. Family notes Shawn has bleeding from the base of his umbilical cord, the clamp was not removed prior to discharge, this LC able to remove it to get a closer look. Fresh looking blood is noted at the base when cleaned with alcohol. Appt. make for Shawn to be seen by Dr. Lynn after this appoitment. POC: pt will try pumping each feeding, continue to bottle feed Shawn. Advised to increase amount to 45-60ml per feeding. F/U: Pt advised to work on pumping and follow up with LC as needed. Consider follow up appt if milk supply increases. Questions invited and answered.
== END ==
LOC: LAC 06:16
DX: Z39.1 Encounter for care and examination of lactating mother (principal)

== ENCOUNTER 2022-07-04 08:11 | Inpatient (IN) | payer MEDICAID ==
[2022-07-04] VITALS (8 sets, daily range): BP systolic 100–105; BP diastolic 60–66; PULSE 126–145; TEMP 98.7–102.5
[~2022-07-04] VITALS: Ht 157.5 cm; Wt 100.0 kg
[~2022-07-04 08:11] MED LIST changes: +SYNTHROID0.125 MG/T PO
[2022-07-04 08:30] LABS: COLLECTION METHOD CLEAN CATCH
[2022-07-04 08:35] LABS: MUCOUS Present (NOT PRESENT); URINE BACTERIA Rare /hpf (NONE SEEN); URINE RBC 0-2 /hpf (0-2)
[2022-07-04 08:38] LABS: PH 5.5 (5.0-8.5); URINE APPEARANCE Clear (CLEAR/HAZY); URINE COLOR Yellow (YELLOW); URINE PROTEIN(semi-quant) Negative (NEGATIVE)
[2022-07-04 08:39] LABS: URINE BLOOD Negative (NEGATIVE); URINE GLUCOSE Negative (NEGATIVE); URINE KETONE Negative (NEGATIVE); URINE NITRATE Negative (NEGATIVE); URINE UROBILINOGEN 0.2 E.U/dL (0.2-1.0)
[2022-07-04 08:46] LABS: HEMATOCRIT 38.6 % (37.0-47.0); MEAN CELL VOLUME 82 fl (80.0-100.0); MEAN CORPUSCULAR HEMOGLOBIN 28 pg (27-31); MEAN CORPUSCULAR HGB CONC 34 g/dl (33.0-37.0); MEAN PLATELET VOLUME 9.4 fl (7.4-10.4); PLATELET COUNT 251 K/mm3 (130-400); RED BLOOD COUNT 4.73 M/mm3 (4.10-5.30); REDCELL DISTRIBUTION WIDTH-CV 15.3 % (11.5-14.5)
[2022-07-04 09:04] LABS: ALBUMIN 3.5 gm/dL (3.5-5.0); BILIRUBIN,TOTAL 0.6 mg/dL (0.2-1.2); CALCIUM 9.5 mg/dL (8.4-10.2); CREATININE, serum 0.85 mg/dL (0.57-1.11); POTASSIUM 3.5 mmol/L (3.5-4.5); TOTAL PROTEIN 7.5 gm/dL (6.2-8.1)
[2022-07-04 09:09] LABS: TROPONIN-I 0.01 ng/mL (0.00-0.033)
[2022-07-04 09:24] LABS: BAND 6 % (0-10); EOSINOPHIL 1 % (0-4); LYMPHOCYTE 6 % (20.0-51.0); NEUTROPHILS 85 % (42.0-75.2)
[2022-07-04 09:27] LABS: ANISOCYTOSIS 1+; PLATELET ESTIMATE NORMAL (NORMAL)
[2022-07-04] MEDS ORDERED: MOTRIN 400400 MG/TAB PO (11:08)
--- NOTE | 2022-07-04 11:44 | NUR ---
PT SITTING UP IN BED. ADMISSION INTAKE AND ASSESSMENT COMPLETED. MED REC UPDATED. PT REPORTS MILD PAIN TO THROAT, FEELS LIKE INCISION IS SWELLING. VOICE IS HOARSE, STATES THIS IS NEW. PT ORIENTED TO ROOM, CALL LIGHT WITHIN REACH. PT REQUESTING PAIN MEDICATION, DISCUSSED WITH DR. CUENCA, AWAIING ORDERS. VSS, PT CURRENTLY ON ROOM AIR. DENIES ANY ADDITIONAL NEEDS AT THIS TIME. CONTINUING TO MONITOR.
--- NOTE | 2022-07-04 20:30 | NUR ---
Initial shift assessment done- states pain to neck incision is 4/10--is due for tylenol within the hour,, steri strips intact to neck incision. Was put on 1 L/nc o2 per respiratory for room air sats 88-89%, now 91-92%, temp has come down to 99.7, tele on- remains tachy at 115-120- Caitlyn PA aware- will order a baseline EKG
[2022-07-05] VITALS (12 sets, daily range): BP systolic 91–104; BP diastolic 53–67; PULSE 103–125; TEMP 97.8–99.4
--- NOTE | 2022-07-05 06:00 | NUR ---
Did get some sleep- VSS, low 90,s SBP, tele 101/min at this time, comtinues with LR at 100cc/hr, continues with o2 at 1L/nc.
[2022-07-05 09:11] LABS: MEAN CELL VOLUME 83 fl (80.0-100.0); MEAN CORPUSCULAR HGB CONC 33 g/dl (33.0-37.0); MEAN PLATELET VOLUME 9.5 fl (7.4-10.4); PLATELET COUNT 171 K/mm3 (130-400); RED BLOOD COUNT 3.72 M/mm3 (4.10-5.30); REDCELL DISTRIBUTION WIDTH-CV 15.7 % (11.5-14.5)
[2022-07-05 09:14] LABS: HEMATOCRIT 30.7 % (37.0-47.0); HEMOGLOBIN 10.1 g/dl (12.5-16.0); MEAN CORPUSCULAR HEMOGLOBIN 27 pg (27-31)
--- NOTE | 2022-07-05 09:28 | NUR ---
BASILIO met with the patient to discuss discharge plan. The patient lives in [place] with her , RUDDY (ph#[phone]), and their 9-month-old. She reports independence with ADLs and does not have any DME. The patient's primary care provider is Catrachita Vizcarra PA-C and she obtains her medications from [facility]. The patient does not have a DPOA-HC. The patient plans to return home with her family upon discharge. No additional needs at this time. *Discharge plan: home with family*
[2022-07-05 09:37] LABS: CALCIUM 7.5 mg/dL (8.4-10.2); CREATININE, serum 0.82 mg/dL (0.57-1.11); POTASSIUM 3.7 mmol/L (3.5-4.5)
[2022-07-05 10:17] LABS: ANISOCYTOSIS 1+; BAND 56 % (0-10); BASOPHIL 1 % (0-2); EOSINOPHIL 3 % (0-4); HYPOCHROMIA 1+; NEUTROPHILS 38 % (42.0-75.2); NUCLEATED RED BLOOD CELL 1 (0-6); PLATELET ESTIMATE NORMAL (NORMAL)
--- NOTE | 2022-07-05 10:29 | NUR ---
Initila visit; Patient thanked Admissions Manager for looking in on her and offering comfort, encouragement and to keep Phoebe in her prayers.
--- NOTE | 2022-07-05 11:45 | NUR ---
SHIFT ASSESSMENT COMPLETED AND MORNING MEDICATIONS ADMINISTERED PER ORDER. PATIENT IS ALERT AND ORIENTED X4. C/O PAIN 6-7/10 TO HER THROAT, PRN PERCOCET GIVEN PER ORDER, WHICH WAS EFFECTIVE IN REDUCING PAIN. LUNGS DIMINISHED WITH FINE CRACKLES TO BASES. ON O2. ON IV FLUIDS, TOLERATING WELL. DENIES NEEDS. FAMILY AT BEDSIDE. CALL LIGHT WITHIN REACH.
--- NOTE | 2022-07-05 12:55 | NUR ---
PATIENT HYPOTENSIVE WITH SBP IN THE LOW 90S, HR 117. DR. CUENCA UPDATED, NEW ORDER RECEIVED FOR 500ML LR BOLUS, THEN CONTINUE LR AT 100/HR FOLLOWING BOLUS.
--- NOTE | 2022-07-05 15:16 | NUR ---
Received report from JESS Velasco.
--- NOTE | 2022-07-05 15:24 | NUR ---
REPORT GIVEN TO EDUARDA PARTIDA.
--- NOTE | 2022-07-05 15:24 | NUR ---
Pt is alert and oriented. Pt currently on 1L per NC. Telemetry on with ST - sustaining in 120s, Dr. Mejia aware. INT in L hand patent, no edema or redness. IVF infusing in R hand. Incision site on throat has minor drainage, c/o 8/10 pain, PRN motrin administered. Pts chest is red and warm to touch, Dr. Mejia aware. No further request at this time. Call light within reach.
--- NOTE | 2022-07-05 19:42 | NUR ---
PT. C/O 09/19 IN HER NECK, UPPER CHEST AREA, STATES THAT THE REDNESS ON HER UPPER CHEST ALSO LOOKS LIKE IT HAS SPREAD FURTHER, THE RN I GOT REPORT FROM STATED THAT THE HOSPITALIST IS AWARE OF THE REDNESS AND WARMTH UNDER THE PT.'S INCISION SITE, SINCE PT. STATED SHE FELT LIKE IT HAD SPREAD I OUTLINED THE REDNESS WITH A MARKER SO THAT WE CAN SEE IF IT SPREADS FURTHER OVERNIGHT, WILL CONTINUE TO MONITOR. PT. STATED SHE FELT SOB, RT INFORMED ME THAT THEY CHECKED HER O2 SATS, THAT SHE WAS 86% ON RA, SO THEY PLACED HER BACK ON 1L, I LET PT. KNOW THAT I WOULD GO CHECK AND SEE WHAT SHE COULD HAVE FOR PAIN MEDICINE AT THIS TIME.
[2022-07-06] VITALS (10 sets, daily range): BP systolic 100–118; BP diastolic 60–71; PULSE 101–129; TEMP 98.6–99.4
[2022-07-06 00:14] LABS: COLLECTION METHOD CLEAN CATCH
[2022-07-06 00:19] LABS: SQUAMOUS EPITHELIAL 0-2 /hpf (0-10); URINE BACTERIA Rare /hpf (NONE SEEN); URINE RBC 0-2 /hpf (0-2)
[2022-07-06 00:20] LABS: URINE APPEARANCE Clear (CLEAR/HAZY); URINE COLOR Yellow (YELLOW)
[2022-07-06 00:21] LABS: URINE BLOOD Negative (NEGATIVE); URINE GLUCOSE Negative (NEGATIVE); URINE KETONE Negative (NEGATIVE); URINE NITRATE Negative (NEGATIVE); URINE PROTEIN(semi-quant) TRACE (NEGATIVE); URINE UROBILINOGEN 0.2 E.U/dL (0.2-1.0)
--- NOTE | 2022-07-06 03:31 | NUR ---
07/05 2020 PT. HAS AN AREA OF WARMTH AND REDNESS ON HER UPPER CHEST, UNDER HER RECENT THYROIDECTOMY INCISION, PT. STATES SHE FEELS LIKE THE REDNESS HAS SPREAD SINCE EARLIER TODAY, I GENTLY OUTLINED THE AREA WITH A MARKER SO THAT WE HAVE A WAY OF KEEPING TRACK IF THE REDNESS CONTINUES TO SWELL, PT. DOES C/O PAIN A 09/19, ASKED IF THERE WAS ANYTHING SHE COULD GET FOR PAIN AT THE MOMENT, I LET HER KNOW THAT I WOULD CHECK AND SEE WHAT SHE HAD LAST, AND BRING HER A DOSE OF SOMETHING SOON POSSIBLE, PT. ALSO STATED THAT SHE FELT SOB, I LET HER KNOW THAT TIBURCIO, THE AIDE WOULD BE RIGHT IN TO CHECK A SET OF VITALS ON HER, AND IF HER OXYGEN PERCENT WAS LOW WE WOULD PUT HER BACK ON OXYGEN IF NEEDED, WILL CONTINUE TO MONITOR.
--- NOTE | 2022-07-06 09:45 | NUR ---
PT NOTED WITH INCREASED REDNESS AROUND NECK AND CHEST THIS AM. PT STATED SHE FIRST NOTED THE REDNESS YESTERDAY, FUSION OPERATOR OUTLINED AREA TO MONITOR. REDNESS HAS CONTINUED TO SPREAD THIS AM. AREA IS WARM TO THE TOUCH PT STATED SHE IS TENDER TO THE AREA. HARSH CHEUNG, IN TO ASSESS PT, ORDERED CBC CMP.
[2022-07-06 09:56] LABS: HEMOGLOBIN 10.3 g/dl (12.5-16.0); MEAN CELL VOLUME 80 fl (80.0-100.0); MEAN CORPUSCULAR HEMOGLOBIN 27 pg (27-31); MEAN CORPUSCULAR HGB CONC 34 g/dl (33.0-37.0); MEAN PLATELET VOLUME 9.5 fl (7.4-10.4); PLATELET COUNT 182 K/mm3 (130-400); RED BLOOD COUNT 3.78 M/mm3 (4.10-5.30); REDCELL DISTRIBUTION WIDTH-CV 15.5 % (11.5-14.5)
[2022-07-06 09:59] LABS: HEMATOCRIT 30.2 % (37.0-47.0)
[2022-07-06 10:12] LABS: CALCIUM 8.4 mg/dL (8.4-10.2); CREATININE, serum 0.8 mg/dL (0.57-1.11); POTASSIUM 3.2 mmol/L (3.5-4.5)
[2022-07-06 10:20] LABS: BAND 28 % (0-10); EOSINOPHIL 4 % (0-4); LYMPHOCYTE 4 % (20.0-51.0); NEUTROPHILS 63 % (42.0-75.2); PLATELET ESTIMATE NORMAL (NORMAL)
--- NOTE | 2022-07-06 11:59 | NUR ---
PT COMPLAINT OF PAIN TO IV SITE ON RIGHT HAND. IV DISCONTINUED, NEW SITE PLACED, 20G TO R AC, CURRENTLY INFUSING ANTIBIOTICS.
--- NOTE | 2022-07-06 12:18 | NUR ---
PT TAKEN DOWN TO CT AT THIS TIME. ANTIBIOTIC INFUSION PAUSED AT THAT TIME.
--- NOTE | 2022-07-06 13:12 | NUR ---
RN NOTIFIED THAT PT WAS BACK FROM CT AT 1236. PT IV CONNECTED BACK TO IV ANTIBIOTICS.
--- NOTE | 2022-07-06 13:29 | NUR ---
Vancomycin Initial Dosing Pharmacy Note Ordering provider: Clayton Mejia MD Indication/duration: chest wall erythema, 7 days LABS: SCr 0.8. CrCl~103, GFR 105 Recommendation: Will give Vancomycin 2 gm IV x1 loading dose, then 1 gm IV q8h. Pharmacy will continue to closely monitor and check a trough on 07/08/22. Loading dose: 2 grams Maintenance dose: 1 gram every 8 hours Trough goal: 10-15 ug/mL
--- NOTE | 2022-07-06 14:28 | NUR ---
PT WHEN SHE WAS LYING DOWN FOR THE CT THAT SHE FELT SOMETHING WAS BLOCKING HER FROM SWALLOWING. SHE STATED SINCE BEING BACK IN THE ROOM SHE STILL FEELS THERE IS SOMETHING IN THE WAY OF SWALLOWING. HARSH CHEUNG NOTIFIED OF PT STATUS.
--- NOTE | 2022-07-06 18:44 | NUR ---
EMS ARRIVED TO TRANSPORT PT TO [facility] AT 1830. REPORT GIVEN TO EMS. PT WAS ON 1L NC, A&O X4. TOOK ALL BELONINGS AND STATED HE WILL BE FOLLOWING BEHIND EMS. IV TO R AC WAS SALINE LOCKED. REPORT CALLED TO [facility], NURSE TAKING REPORT WAS MANDY MERCADO.
== END 2022-07-06 18:30 | disposition short-term general hospital (02) | DRG 871 ==
LOC: COL.ER 08:11 → SURG 10:01
PROVIDERS: Emergency Medicine; Physician Assistant; ADMIT Student in an Organized Health Care Education/Training Program
DX: A41.9 Sepsis, unspecified organism (principal); J18.9 Pneumonia, unspecified organism; T81.49XA Infection following a procedure, other surgical site, initial encounter; L03.313 Cellulitis of chest wall; Z68.41 Body mass index [BMI] 40.0-44.9, adult; E87.6 Hypokalemia; E03.9 Hypothyroidism, unspecified; Z20.822 Contact with and (suspected) exposure to COVID-19; D64.9 Anemia, unspecified; L53.8 Other specified erythematous conditions; E66.9 Obesity, unspecified; Z23 Encounter for immunization; Z90.89 Acquired absence of other organs; Z79.890 Hormone replacement therapy; Z90.49 Acquired absence of other specified parts of digestive tract
CPT/HCPCS: J0456; J0692; J0696; J2270; J2405; J2543; J3370; J7030; J7040; J7050; J7120; Q9967

== ENCOUNTER 2023-04-14 06:37 | Day surgery (SDC) | payer BC, MEDICAID ==
[~2023-04-14] VITALS: Ht 160 cm; Wt 113.0 kg
[~2023-04-14 06:37] MED LIST changes: +LR 1,000 ML IV SCH; +MOTRIN 400400 MG/TAB PO; +Ondansetron 4 MG/2 ML VIAL IV PRN; -SYNTHROID0.125 MG/T PO; +SYNTHROID0.137 MG PO
[2023-04-14 06:44] VITALS: BP 121/88; PULSE 84; TEMP 97.4
[2023-04-14] MEDS ORDERED: PROVENTIL0.09 MG/A1 IH (06:50)
[2023-04-14] MEDS ORDERED: LIPITOR20 MG PO (06:50)
[2023-04-14] MEDS ORDERED: GLUCOPHAGE500 MG/TAB PO (06:50)
--- NOTE | 2023-04-14 07:08 | NUR ---
The patient ambulated back to [place] [facility] independently using a steady gait and appeared to tolerate the activity well. Vital signs obtained. Consent signed. 20G IV started in right hand with one stick, LR infusing without difficulty. Assessment completed. Home medications reconcilled. Warm blankets provided. Call light is within reach. at bedside. Denies any further needs at this time.
[2023-04-14] MEDS ORDERED: Lidocaine PF 2% (20 MG/ML) 5 ML VIAL ONE (08:39)
[2023-04-14 09:15] VITALS: BP 127/81; PULSE 83; TEMP 97.4
[2023-04-14 09:30] VITALS: BP 127/85; PULSE 79
[2023-04-14 09:31] VITALS: BP 121/85; PULSE 82
--- NOTE | 2023-04-14 09:37 | NUR ---
0915- PATIENT RETURNS TO [facility] VIA CART. PT AWAKE AND ALERT. RESPIRATIONS UNLABORED. AMBULATED TO RECLINER CHAIR WITH 2:1 SBA. PT DENIES NAUSEA OR ABDOMINAL PAIN. HOOKED UP TO MONITOR AND VS OBTAINED. CALL LIGHT AT SIDE AND PRESENT. 0923- PATIENT TOLERATING APPLE JUICE AND MUFFIN WITHOUT NAUSEA OR DIFFICULTY SWALLOWING. 0929- D/C INSTRUCTIONS REVIEWED WITH PATIENT. PT VERBALIZED UNDERSTANDING AND A COPY OF INSTRUCTIONS PROVIDED IN D/C FOLDER. 0932- DR. TORRES IN ROOM SPEAKING WITH PATIENT. 0935- PATIENT DRESSES SELF. 0937- PATIENT DISCHARGED FROM UNIT VIA W/C TO A PERSONAL VEHICLE. PT LEFT HOSPITAL IN STABLE CONDITION.
== END 2023-04-14 09:37 | disposition home or self-care (01) ==
LOC: SDCO 06:37
DX: K21.00 Gastro-esophageal reflux disease with esophagitis, without bleeding (principal); E66.01 Morbid (severe) obesity due to excess calories; Z68.41 Body mass index [BMI] 40.0-44.9, adult
CPT/HCPCS: J2704; J7120

== ENCOUNTER 2023-07-06 13:33 | Outpatient (RCR) | payer BC, MEDICAID ==
[~2023-07-06] VITALS: Ht 160 cm; Wt 115.2 kg
[~2023-07-06 13:33] MED LIST changes: +GLUCOPHAGE500 MG/TAB PO; +LIPITOR20 MG PO; -LR 1,000 ML IV SCH; -Ondansetron 4 MG/2 ML VIAL IV PRN; +PROVENTIL0.09 MG/A1 IH
[2023-07-06] MEDS ORDERED: IRON SUCROSE IV ONE (14:00)
[2023-07-06] MEDS ORDERED: NS IV ONE (14:00)
[2023-07-06] MEDS ORDERED: IRON TABLETS325 MG PO (14:31)
== END 2023-07-11 ==
LOC: EUO
DX: E61.1 Iron deficiency (principal)
CPT/HCPCS: J1756

== ENCOUNTER 2023-12-03 14:15 | Emergency (ER) | payer OTHER ==
[~2023-12-03] VITALS: Ht 160 cm; Wt 109.1 kg
[~2023-12-03 14:15] MED LIST changes: +IRON TABLETS325 MG PO
[2023-12-03 14:22] VITALS: TEMP 97.9
[2023-12-03 14:41] LABS: BASO % 0.3 % (0.0-2.0); EOS # 0.1 K/mm3 (0.0-0.7); EOS % 1.3 % (0.0-4.0); GRAN # 4.8 K/mm3 (1.4-6.5); GRAN % 61.3 % (42.2-75.2); HEMATOCRIT 43.9 % (37.0-47.0); HEMOGLOBIN 14.8 g/dl (12.5-16.0); LYMPH # 2.4 K/mm3 (1.2-3.4); LYMPH % 30.3 % (20.0-51.0); MEAN CELL VOLUME 85 fl (80.0-100.0); MEAN CORPUSCULAR HEMOGLOBIN 29 pg (27-31); MEAN CORPUSCULAR HGB CONC 34 g/dl (33.0-37.0); MEAN PLATELET VOLUME 9.4 fl (7.4-10.4); MONO # 0.5 K/mm3 (0.1-0.6); MONO % 6.2 % (1.7-9.3); PLATELET COUNT 263 K/mm3 (130-400); RED BLOOD COUNT 5.19 M/mm3 (4.10-5.30); REDCELL DISTRIBUTION WIDTH-CV 14.1 % (11.5-14.5)
[2023-12-03 14:51] LABS: COLLECTION METHOD CLEAN CATCH
[2023-12-03 15:00] LABS: URINE APPEARANCE CLEAR (CLEAR/HAZY); URINE BLOOD NEGATIVE (NEGATIVE); URINE COLOR YELLOW (YELLOW); URINE GLUCOSE NEGATIVE (NEGATIVE); URINE KETONE NEGATIVE (NEGATIVE); URINE NITRATE NEGATIVE (NEGATIVE); URINE PROTEIN(semi-quant) TRACE (NEGATIVE); URINE UROBILINOGEN 0.2 E.U/dL (0.2-1.0)
[2023-12-03 15:01] LABS: BILIRUBIN,TOTAL 0.5 mg/dL (0.2-1.2); CALCIUM 8.6 mg/dL (8.4-10.2); CREATININE, serum 0.84 mg/dL (0.57-1.11); POTASSIUM 3.6 mEq/L (3.5-4.5); TOTAL PROTEIN 7.2 g/dl (6.2-8.1)
[2023-12-03 15:04] LABS: C-REACTIVE PROTEIN 0.68 mg/dL (0.00-0.50)
[2023-12-03 16:15] VITALS: BP 124/99; PULSE 85
== END 2023-12-03 16:15 | disposition home or self-care (01) ==
LOC: COL.ER 14:15
PROVIDERS: Nurse Practitioner
DX: R07.81 Pleurodynia (principal); R10.13 Epigastric pain